=== PATIENT | female | born 1950 | race Caucasian/White ===

== ENCOUNTER 2016-06-06 08:51 | Day surgery (SDC) | payer OTHER ==
[2016-06-06 09:46] VITALS: BMI 28.3
[2016-06-06 10:45] VITALS: TEMP 97.5
[2016-06-06 11:12] VITALS: PULSE 62
[2016-06-06 11:47] VITALS: BP 121/65
== END 2016-06-06 11:35 | disposition home or self-care (01) ==
LOC: JASU-ENDO 08:51
PROVIDERS: ATTEND Internal Medicine Gastroenterology
PROC: 0DJD8ZZ Inspection of Lower Intestinal Tract, Via Natural or Artificial Opening Endoscopic (ICD-10-PCS; principal; 2016-06-06 10:00)
DX: K64.1 Second degree hemorrhoids (principal); K64.4 Residual hemorrhoidal skin tags

== ENCOUNTER 2018-02-01 08:26 | Day surgery (SDC) | payer OTHER ==
[2018-01-31 18:04] VITALS: BMI 26.5
[2018-02-01 08:52] LABS: BASO % 0.6 % (0-2.0); EOS % 2.5 % (0-4.5); HEMATOCRIT 40.9 % (32.4-45.2); HEMOGLOBIN 13.7 GM/dL (10.7-15.3); LYMPH % 29.6 % (8-40); MCH 33.2 pg (25.7-33.7); MCHC 33.4 g/dl (32.0-36.0); MEAN CELL VOLUME 99.5 fl (80-96); MEAN PLT VOLUME 8.8 fl (7.5-11.1); MONO % 8.2 % (3.8-10.2); NEUT % 59.1 % (42.8-82.8); PLATELET COUNT 146 K/MM3 (134-434); RBC 4.11 M/mm3 (3.60-5.2); RDW 12.9 % (11.6-15.6)
[2018-02-01 09:09] LABS: INR 0.97 (0.83-1.09)
[2018-02-01 11:29] VITALS: TEMP 97.9
[2018-02-01 17:32] VITALS: BP 136/71; PULSE 67
--- NOTE | 2018-02-01 18:15 | CON.NEURO ---
Consult - Past Medical History ...: No - Alcohol/Substance Use Hx Alcohol Use: Yes (SOCIAL) - Smoking History Smoking history: Former smoker Have you smoked in the past 12 months: No If you are a former smoker, when did you quit?: 22 YRS. Home Medications - Allergies Allergies/Adverse Reactions: Allergies Allergy/AdvReac Type Severity Reaction Status Date / Time morphine AdvReac Severe Vomiting Verified 01/31/18 17:54 - Home Medications Home Medications: Ambulatory Orders Bisoprolol/Hydrochlorothiazide [Ziac 10-6.25 mg Tablet] 1 each PO DAILY Diclofenac Sodium 75 mg PO PRN PRN 01/31/18 Rosuvastatin Calcium [Crestor] 10 mg PO HS 01/31/18 Physical Exam-Neuro Vital Signs: Vital Signs Temperature 97.9 F 02/01/18 11:15 Pulse Rate 67 02/01/18 17:10 Respiratory Rate 18 02/01/18 17:10 Blood Pressure 136/71 02/01/18 17:10 O2 Sat by Pulse Oximetry (%) 99 02/01/18 11:00 Labs: CBC, BMP 02/01/18 08:39 INR, PTT INR 0.97 (0.83-1.09) 02/01/18 08:39 Assessment/Plan CC: Left leg numbness and weakness following procedure , now resolved HPI 67 year old female history of HTN,HLD,Arthris, colonic polyp, liver cyst and pelvic cyst. She had procedure done suspected to ahve synovial cyst. She was given lidocaine in groin region. Following procedure she could not walk. She denies any similar symptoms on right leg, or back pain , no dysphagia, dysarthria, diplopia or LOC, no seizure. Her symptoms resolved after few hours. Medical History as above Bisoprolol Fumarate/Hctz Crestor 10 mg ROS,FH,SH, She works in [employer] department Denies any toxic habits Neurological Examination Alert oriented x 3 CN all intact , eomi, pupils reactive and no facial asymmetry moving all extremity she is able to walk on toes, partially on heel squatting she has pain as she just had procedure reflex are symmetrical and sensation is normal Assessment- Most likley she has Femoral nerve blockage due to lidocaine injection and it resolved as lidocaine wear off. Clinically no evidence of TIA or stroke, symptoms completely resolved Plan- I gave her my card, and follow up if any active issue - She was reassured, no further test needed, Thanking you so much Tylor Costello MD
--- NOTE | 2018-02-02 12:18 | PATH ---
Cytology Non-Gynecological Report Patient Name: JASKARAN RUVALCABA [facility]. Rec. #: [id number] /Age/Gender: 1950 (Age: 67) / F Account: [id number] Location: RADIOLOGY INTER Taken: 02/01/2018 Received: 02/01/2018 Reported: 02/02/2018 Physicians: Kacy Chowdhury M.D. Specimen(s) Received PELVIC CYST FLUID Clinical History Pelvic cyst Final Diagnosis PELVIC CYST FLUID FOR CYTOLOGY: SATISFACTORY FOR EVALUATION. NEGATIVE FOR MALIGNANT CELLS. CYSTIC LESION WITH MACROPHAGES. SCATTERED MACROPHAGES IN A BACKGROUND OF PROTEINACEOUS MATERIAL. Electronically Signed Mariana Claros M.D. Gross Description Approximately 50 cc of yellow fluid received fixed in 50% alcohol. Two cytofunnels prepared and Pap stained. One cellblock prepared.
== END 2018-02-01 17:10 | disposition home or self-care (01) ==
LOC: JRADIR 08:26
PROVIDERS: ATTEND Specialist
PROC: 0Y963ZZ Drainage of Left Inguinal Region, Percutaneous Approach (ICD-10-PCS; principal; 2018-02-01)
DX: R19.09 Other intra-abdominal and pelvic swelling, mass and lump (principal)
CPT/HCPCS: 36415; 72192-TC; 76942-TC; 85025; 85610; 87070; 87075; 87102; 87116; 87205; 87206; 87210; 88108; 88305-TC

== ENCOUNTER 2018-04-23 06:15 | Emergency (ER) | payer OTHER ==
[2018-04-23 07:06] VITALS: BMI 27.1
[2018-04-23] MEDS ORDERED: ONDANSETRON 4 MG/2 ML VIAL IVPUSH ONE (07:20)
[2018-04-23] MEDS ORDERED: KETOROLAC TROMETHAMINE 30 MG/1 ML VIAL IVPUSH ONE (07:20)
[2018-04-23] MEDS ORDERED: SODIUM CHLORIDE 0.9% 500 ML INFUS.BAG IV ONE (07:21)
--- NOTE | 2018-04-23 07:23 | PDOC ---
History of Present Illness - General Chief Complaint: Pain, Acute Stated Complaint: R/O KIDNEY STONE Time Seen by Provider: 04/23/18 07:01 History Source: Patient Exam Limitations: No Limitations - History of Present Illness Initial Comments: 68 yo F w a hx of cholecystectomy, partial hysterectomy with intact ovaries, recent rotater cuff surgery on Apr 04, HTN, HLD, Arthris, colonic polyp, liver cyst and pelvic cyst is here with sudden onset of R sided flank pain radiating to the RLQ and R groin since 3:30 AM this morning associated with nausea and vomiting. She denies blood in the vomit but states the vomit had bile in it and was yellow/green in appearance. She had an abdominal CT scan around a year ago which showed she had a kidney stone on the right side but it was incidental and asymptomatic at the time of the cat scan. She also states that she has a strong family hx of kidney stones as her sister gets them all the time. Had a normal BM yesterday evening. She denies any recent fevers, chills, or infections. Denies chest pain, SOB, or difficulty breathing. Denies any dysuria, frequency, urgency. Denies any diarrhea or constipation. Past History - Past Medical History Allergies/Adverse Reactions: Allergies Allergy/AdvReac Type Severity Reaction Status Date / Time morphine AdvReac Severe Vomiting Verified 01/31/18 17:54 Home Medications: Ambulatory Orders Bisoprolol/Hydrochlorothiazide [Ziac 10-6.25 mg Tablet] 1 each PO DAILY Diclofenac Sodium 75 mg PO PRN PRN 01/31/18 Rosuvastatin Calcium [Crestor] 10 mg PO HS 01/31/18 Naproxen Sodium [Aleve] 220 mg PO ONCE 7 Days #30 tablet 04/23/18 Tamsulosin HCl [Flomax] 0.4 mg PO DAILY 7 Days #7 capsule 04/23/18 Anemia: No Asthma: No Cancer: No Cardiac Disorders: No CVA: No COPD: No CHF: No Dementia: No Diabetes: No GI Disorders: Yes (DUODENAL POLYP,ENLARGED PANCREATIC HEAD,LIVER CYST,COLONIC POLYPS) Disorders: Yes (KIDNEY STONE) HTN: Yes Hypercholesterolemia: Yes Liver Disease: Yes (NON ALCOHOLIC FATTY LIVER) Seizures: No Thyroid Disease: No - Surgical History Abdominal Surgery: Yes Appendectomy: No Cardiac Surgery: No Cholecystectomy: Yes Lung Surgery: No Neurologic Surgery: Yes (C3-4 DISC - CERVICAL FUSION, LT CARPEL TUNNEL) Orthopedic Surgery: Yes (CARPAL TUNNEL LEFT) - Suicide/Smoking/Psychosocial Hx Smoking History: Unknown if ever smoked Have you smoked in the past 12 months: No If you are a former smoker, when did you quit?: 22 YRS. Information on smoking cessation initiated: No Hx Alcohol Use: No Drug/Substance Use Hx: No Substance Use Type: None Hx Substance Use Treatment: No Review of Systems - Review of Systems Able to Perform ROS?: Yes Comments:: CONSTITUTIONAL: Absent: fever, no chills, no fatigue EYES: Absent: visual changes ENT: Absent: ear pain, no sore throat CARDIOVASCULAR: Absent: chest pain, no palpitations RESPIRATORY: Absent: cough, no SOB GI: Present: Abdominal pain, nausea, vomiting, Absent: no constipation, no diarrhea GENITOURINARY: Absent: dysuria, no frequency MUSKULOSKELETAL: Present: Back pain Absent: no arthralgia, no myalgia SKIN: Absent: rash NEURO: Absent: headache *Physical Exam - Vital Signs Last Vital Signs Temp Pulse Resp BP Pulse Ox 98.9 F 65 17 172/78 H 98 04/23/18 07:00 04/23/18 07:00 04/23/18 07:00 04/23/18 07:00 04/23/18 07:00 - Physical Exam Comments: GENERAL: Patient is writhing in pain in the bed and crying. HEENT: Normocephalic, atraumatic. PERRL, EOM intact. CARDIOVASCULAR: Normal S1, S2. Regular rate and rhythm. PULMONARY: Clear to auscultation bilaterally. ABDOMEN: There is significant Rlq Abdominal and flank pain. Normal BS. Abdomen is soft, no peritoneal signs. EXTREMITIES: Normal ROM in all four extremities. No gross deformities. SKIN: Warm, dry. No rash NEUROLOGICAL: No focal neurological deficits. Moderate Sedation - Procedure Monitoring Vital Signs: Procedure Monitoring Vital Signs Temperature 98.9 F 04/23/18 07:00 Pulse Rate 65 04/23/18 07:00 Respiratory Rate 17 04/23/18 07:00 Blood Pressure 172/78 H 04/23/18 07:00 O2 Sat by Pulse Oximetry (%) 98 04/23/18 07:00 Heart Score/ECG Review - Age Age: >/= 65 - Risk Factors Risk Factors Heart Score: Yes Hx Hypercholesterolemia, Yes Hx Hypertension - ECG Intrepretation Rhythm: Regular Rhythm - [place] Suffolk: Left [place] Deviation - ST and T Early Repolarization: No Non Specific ST-T Wave changes: No - ECG Impressions Normal ECG: Yes Non-specific ST Elevation: No Ischemic Changes: No ED Treatment Course - LABORATORY CBC & Chemistry Diagram: 04/23/18 07:33 04/23/18 07:33 - RADIOLOGY Radiology Studies Ordered: Category Date Time Status ABDOMEN & PELVIS CT W/O CONTR [CT] Stat CT Scan 04/23/18 07:21 Ordered Medical Decision Making - Medical Decision Making 68 yo F w a hx of cholecystectomy, partial hysterectomy with intact ovaries, recent rotater cuff surgery on Apr 04, HTN, HLD, Arthris, colonic polyp, liver cyst and pelvic cyst is here with sudden onset of R sided flank pain radiating to the RLQ and R groin since 3:30 AM this morning associated with nausea and vomiting. DD includes but not limited to: Renal stones, Appy, SBO, AAA, Ovarian pathology. Plan: Cbc, Cmp, ua/uc, EKG, CTAP w/wo contrast, zofran, toradol, IV hydration, re-assess. BUN: 21 Cr: 0.9 3+ blood in urine. Negative LE, negative nitrite. CTAP shows 4 mm right UVJ calculus with moderate hydronephrosis. Patient experienced significant relief with toradol. Plan is to dispo patient on aleve, tylenol, and with a uro FU. Strict return precautions discussed with patient. *DC/Admit/Observation/Transfer Diagnosis at time of Disposition: Kidney stone on right side - Discharge Dispostion Disposition: HOME Condition at time of disposition: Stable Decision to Admit order: No - Prescriptions Prescriptions: Naproxen Sodium [Aleve] 220 mg PO ONCE 7 Days #30 tablet Tamsulosin HCl [Flomax] 0.4 mg PO DAILY 7 Days #7 capsule - Referrals Referrals: Medardo Hood MD [Staff Physician] - - Patient Instructions Printed Discharge Instructions: Kidney Stones (Alternative Therapy), Kidney Stones -- Adult, DI for Kidney Stones Additional Instructions: You came into the ER with right sided flank and abdominal pain. We did a cat scan and saw that you have a 4 millimeter kidney stone which is causing your pain. It is very important to schedule a follow up with a urologist today to monitor your kidney stone. We have attached the number for a urologist for you to call. Please make sure to drink plenty of fluids. Staying hydrated will help pass the stone. Take aleve as needed for pain control. You can also take tylenol is the aleve is not helping enough. We are also sending flomax to your pharmacy to help pass the stone. Please come back to the ER immediately if you develop a fever, extreme pain, can 't pee, have bad body aches, or any other significant new or worsening concerns. Thank you for coming to the [facility] ER. We hope you feel better soon! Print Language: WOLOF - Post Discharge Activity Forms/Work/School Notes: Back to Work
[2018-04-23] MEDS ORDERED: ONDANSETRON 4 MG/2 ML VIAL ONE (07:30)
[2018-04-23] MEDS ORDERED: KETOROLAC TROMETHAMINE 30 MG/1 ML VIAL ONE (07:30)
[2018-04-23 07:45] LABS: BASO % 0.6 % (0-2.0); EOS % 2.5 % (0-4.5); HEMATOCRIT 40.5 % (32.4-45.2); HEMOGLOBIN 14.6 GM/dL (10.7-15.3); LYMPH % 35.6 % (8-40); MCH 35.4 pg (25.7-33.7); MCHC 36.1 g/dl (32.0-36.0); MEAN PLT VOLUME 9.5 fl (7.5-11.1); MONO % 5.4 % (3.8-10.2); NEUT % 55.9 % (42.8-82.8); PLATELET COUNT 184 K/MM3 (134-434); RBC 4.13 M/mm3 (3.60-5.2); WHITE BLOOD COUNT 5.6 K/mm3 (4.0-10.0)
[2018-04-23 08:23] LABS: ALBUMIN 4.5 g/dl (3.4-5.0); ALK PHOS 72 U/L (45-117); ANION GAP 13 MMOL/L (8-16); BILIRUBIN,TOTAL 0.6 mg/dL (0.2-1); BLOOD UREA NITROGEN 21 mg/dL (7-18); CALCIUM 9.1 mg/dL (8.5-10.1); CHLORIDE 107 mmol/L (98-107); CO2 22 mmol/L (21-32); CREATININE 0.9 mg/dL (0.55-1.3); GLUCOSE,RANDOM 147 mg/dL (74-106); POTASSIUM 4.2 mmol/L (3.5-5.1); SGOT/AST 35 U/L (15-37); SGPT/ALT 46 U/L (13-61); SODIUM 142 mmol/L (136-145); TOT PROT 7.8 g/dl (6.4-8.2)
--- NOTE | 2018-04-23 08:47 | PDOC ---
Attending Attestation - Resident Resident Name: Jama Perez - ED Attending Attestation I have performed the following: I have examined & evaluated the patient, The case was reviewed & discussed with the resident, I agree w/resident's findings & plan, Exceptions are as noted - HPI HPI: 04/23/18 08:46 68 years old past medical history significant for cholecystectomy, partial hysterectomy rotator cuff surgery, hypertension, hypercholesterolemia presents to the ED with right-sided abdominal discomfort now maximally located in the right lower quadrant since approximately 3:30 this a.m. associated with nausea vomiting Symptoms are moderate to severe persistent concent no exacerbating or alleviating factors. - Physicial Exam PE: 04/23/18 09:24 Vitals: Triage Vital signs reviewed General Appearance: no acute distress, well nourished well developed, Head: Atraumatic, Eyes: Pupils equal reactive round, extraocular movement intact Chest Wall: Nontender Cardiac: Regular rate and rhythym, no murmurs, no rubs, no gallops, Lungs: Clear to auscultation bilateral, good air movement bilaterally, Abdomen: Soft, non distended, normal bowel sounds, non tender to palpation Extremities: Full range of motion to all extremities, no cyanosis, clubbing, or edema Skin: Warm and dry, no rashes or lesions, no rash, no petechiae Neuro: AOX3; Cranial Nerves 2-12 grossly intact, Strength intact to all extremities, Sensation intact to all extremities,gait normal Psych: normal mood, normal affect - Medical Decision Making 04/23/18 09:26 68 years old with right-sided abdominal discomfort We'll treat with pain medication IV fluids CAT scan with IV contrast observe and reassess 04/23/18 14:20 CAT scan notable for distal ureteral stone. No fever no elevated white blood cell count no evidence of infection on urinalysis. Patient more comfortable after pain medication. We'll follow up with urology this week we'll discharge with increased fluid intake Flomax alternating Aleve and Tylenol for pain Findings, need for follow-up and strict return instructions discussed patient.
[2018-04-23 08:53] LABS: URINE APPEARANCE SLCLOUDY; URINE BILIRUBIN NEGATIVE (<2.0 mg/dL); URINE COLOR YELLOW; URINE GLUCOSE (UA) NEGATIVE (NEGATIVE); URINE KETONE TRACE (NEGATIVE); URINE LEUK ESTERASE NEGATIVE (NEGATIVE); URINE NITRITE NEGATIVE (NEGATIVE); URINE PROTEIN 1+ (NEGATIVE); URINE UROBILINOGEN NEGATIVE mg/dL (0.2-1.0)
[2018-04-23 09:08] LABS: CALCIUM OXALATE CRYSTALS RARE /hpf (NONE SEEN); EPI CELLS RARE /HPF (FEW); URINE MUCUS FEW
--- NOTE | 2018-04-23 11:08 | EKG ---
Test Reason : Blood Pressure : / mmHG Vent. Rate : 062 BPM Atrial Rate : 062 BPM P-R Int : 174 ms QRS Dur : 108 ms QT Int : 464 ms P-R-T Axes : 005 -12 025 degrees QTc Int : 470 ms NORMAL SINUS RHYTHM CANNOT RULE OUT ANTEROSEPTAL INFARCT (CITED ON OR BEFORE 07-OCT-2015) ABNORMAL ECG WHEN COMPARED WITH ECG OF 07-OCT-2015 12:14, NO SIGNIFICANT CHANGE WAS FOUND Confirmed by FELIPA BENTLEY MD ([id number]) on 04/23/2018 11:08:06 AM Referred By: Confirmed By:FELIPA BENTLEY MD
[2018-04-23 11:11] VITALS: BP 111/80; PULSE 78; TEMP 98.3
== END 2018-04-23 11:10 | disposition home or self-care (01) ==
LOC: JER 06:15
PROC: 3E0337Z Introduction of Electrolytic and Water Balance Substance into Peripheral Vein, Percutaneous Approach (ICD-10-PCS; principal; 2018-04-23)
PROC: 3E0333Z Introduction of Anti-inflammatory into Peripheral Vein, Percutaneous Approach (ICD-10-PCS; 2018-04-23)
PROC: 3E033GC Introduction of Other Therapeutic Substance into Peripheral Vein, Percutaneous Approach (ICD-10-PCS; 2018-04-23)
DX: N20.0 Calculus of kidney (principal)
CPT/HCPCS: 36415; 74177-TC; 80053; 81003; 81015; 85025; 87086; 93005; 93010; 99282-25

== ENCOUNTER 2021-05-12 04:22 | Day surgery (SDC) | payer OTHER ==
[2021-05-10 12:29] VITALS: BMI 27.4
[2021-05-12] MEDS ORDERED: ACETAMINOPHEN 1000 MG/100 ML VIAL IVPB ONE ×2 (07:37→09:30)
[2021-05-12] MEDS ORDERED: PROPOFOL 20 ML ONE ×3 (07:37→07:39)
[2021-05-12] MEDS ORDERED: SUCCINYLCHOLINE CHLORIDE 200 MG/10 ML SYRINGE ONE (07:38)
[2021-05-12] MEDS ORDERED: IBUPROFEN 800 MG/8 ML IJ IVPB SCH (07:45)
[2021-05-12] MEDS ORDERED: DEXTROSE 5%-0.45% SALINE 1,000 ML IV SCH (07:45)
[2021-05-12] MEDS ORDERED: ceFAZolin SODIUM 1 GM VIAL IVPB ONE (07:50)
[2021-05-12] MEDS ORDERED: IOHEXOL 300 MG/ML INFUS..BTL IJ ONE (08:29)
[2021-05-12] MEDS ORDERED: LACTATED RINGERS SOLUTION 1,000 ML IV SCH (08:45)
[2021-05-12] MEDS ORDERED: PROMETHAZINE HCL 25 MG/1 ML VIAL IVPUSH PRN (08:45)
[2021-05-12] MEDS ORDERED: ACETAMINOPHEN INJECTION 100 ML IVPB ONE (09:27)
[2021-05-12] MEDS: IBUPROFEN 800 MG/8 ML IJ IVPB ONE ×2 (10:00→10:10)
[2021-05-12 12:11] VITALS: BP 128/60; PULSE 56; TEMP 97.3
== END 2021-05-12 12:13 | disposition home or self-care (01) ==
LOC: JASU-SURG 04:22
PROVIDERS: ATTEND Urology
PROC: 0T768DZ Dilation of Right Ureter with Intraluminal Device, Via Natural or Artificial Opening Endoscopic (ICD-10-PCS; principal; 2021-05-12 07:30)
PROC: 0T9680Z Drainage of Right Ureter with Drainage Device, Via Natural or Artificial Opening Endoscopic (ICD-10-PCS; 2021-05-12 07:30)
DX: N23 Unspecified renal colic (principal)
CPT/HCPCS: 76000-TC-FY; 94760; J0131

== ENCOUNTER 2021-05-14 10:06 | Observation (INO) | payer OTHER ==
[2021-05-14] MEDS ORDERED: SODIUM CHLORIDE 0.9% 500 ML INFUS.BAG IV ONE (11:02)
[2021-05-14] MEDS ORDERED: KETOROLAC TROMETHAMINE 30 MG/1 ML VIAL IVPUSH ONE (11:02)
[2021-05-14] MEDS ORDERED: ACETAMINOPHEN 1000 MG/100 ML VIAL IVPB ONE (11:02)
[2021-05-14] MEDS ORDERED: TAMSULOSIN HCL 0.4 MG CAP PO ONE ×2 (11:15→11:19)
[2021-05-14] MEDS ORDERED: ONDANSETRON 4 MG TABLET PO ONE (11:15)
[2021-05-14] MEDS ORDERED: KETOROLAC TROMETHAMINE 30 MG/1 ML VIAL ONE (11:16)
[2021-05-14] MEDS ORDERED: ACETAMINOPHEN INJECTION 100 ML IVPB ONE ×2 (11:16→20:29)
[2021-05-14] MEDS ORDERED: ONDANSETRON 4 MG/2 ML VIAL IVPUSH ONE (11:17)
[2021-05-14 11:19] LABS: BASO % 0.1 % (0-2.0); EOS % 0.5 % (0-4.5); HEMATOCRIT 40.8 % (32.4-45.2); LYMPH % 22.1 % (8-40); MCH 34.7 pg (25.7-33.7); MCHC 34.2 g/dl (32.0-36.0); MEAN CELL VOLUME 101.6 fl (80-96); MEAN PLT VOLUME 8.4 fl (7.5-11.1); MONO % 6.8 % (3.8-10.2); NEUT % 70.5 % (42.8-82.8); PLATELET COUNT 144 10^3/uL (134-434); RBC 4.02 M/mm3 (3.60-5.2); RDW 13.3 % (11.6-15.6); WHITE BLOOD COUNT 6.5 K/mm3 (4.0-10.0)
[2021-05-14] MEDS ORDERED: ONDANSETRON *ODT* 4 MG TABLET ONE (11:20)
[2021-05-14] MEDS ORDERED: ONDANSETRON 4 MG/2 ML VIAL ONE (11:25)
[2021-05-14] MEDS ORDERED: TAMSULOSIN HCL 0.4 MG CAP ONE (11:25)
[2021-05-14 11:38] LABS: CHLORIDE 108 mmol/L (98-107); SODIUM 143 mmol/L (136-145)
[2021-05-14 11:40] LABS: ALBUMIN 3.9 g/dl (3.4-5.0); ANION GAP 6 MMOL/L (8-16); BLOOD UREA NITROGEN 12.8 mg/dL (7-18); CO2 28 mmol/L (21-32); LIPASE 97 U/L (73-393)
[2021-05-14 11:41] LABS: GLUCOSE,RANDOM 119 mg/dL (74-106)
[2021-05-14 11:43] LABS: CREATININE 0.9 mg/dL (0.55-1.3); SGOT/AST 21 U/L (15-37); SGPT/ALT 27 U/L (13-61)
[2021-05-14 11:45] LABS: BILIRUBIN,TOTAL 0.6 mg/dL (0.2-1); TOT PROT 7.4 g/dl (6.4-8.2)
[2021-05-14 11:46] LABS: ALK PHOS 52 U/L (45-117)
[2021-05-14 13:15] LABS: EPI CELLS FEW /uL (0-25.1); URINE APPEARANCE TURBID; URINE BACTERIA FEW /uL (0-1359); URINE COLOR BROWN; URINE RBC >100 /uL (0-23.9); YEAST FEW (NEGATIVE)
[2021-05-14] MEDS ORDERED: PIPERACILLIN/TAZOB 4.5 GM 4.5 GM in DEXTROSE 5%-WATER - 100 ML IVPB ONE (13:42)
[2021-05-14] MEDS ORDERED: PIPERACILLIN/TAZOB 4.5 GM 4.5 GM/100 ML BAG IVPB ONE (13:52)
[2021-05-14] MEDS ORDERED: ONDANSETRON 4 MG/2 ML VIAL IVPUSH PRN (14:26)
[2021-05-14] MEDS: ACETAMINOPHEN 1000 MG/100 ML VIAL IVPB PRN (20:37)
[2021-05-14] MEDS: HEPARIN NA (PORCINE) 5,000 UNITS/ML 1ML VIAL SQ SCH (22:53)
[2021-05-14 23:58] VITALS: BMI 28.3
[2021-05-15] MEDS: ACETAMINOPHEN 1000 MG/100 ML VIAL IVPB PRN (06:10)
[2021-05-15] MEDS ORDERED: KETOROLAC TROMETHAMINE 15 MG/ML VIAL IVPB ONE (07:00)
[2021-05-15] MEDS ORDERED: PT OWN MED DRAWER 7, Y5N ONE (09:19)
[2021-05-15 09:25] LABS: BASO % 0.3 % (0-2.0); EOS % 0.7 % (0-4.5); HEMATOCRIT 38.2 % (32.4-45.2); HEMOGLOBIN 13.2 GM/dL (10.7-15.3); LYMPH % 23.3 % (8-40); MCH 34.7 pg (25.7-33.7); MCHC 34.4 g/dl (32.0-36.0); MEAN CELL VOLUME 100.7 fl (80-96); MEAN PLT VOLUME 8.3 fl (7.5-11.1); MONO % 7.5 % (3.8-10.2); NEUT % 68.2 % (42.8-82.8); PLATELET COUNT 145 10^3/uL (134-434); RDW 12.9 % (11.6-15.6); WHITE BLOOD COUNT 5.2 K/mm3 (4.0-10.0)
[2021-05-15 09:55] LABS: ALBUMIN 3.6 g/dl (3.4-5.0); BLOOD UREA NITROGEN 10.7 mg/dL (7-18)
[2021-05-15 09:57] LABS: BILIRUBIN,TOTAL 0.8 mg/dL (0.2-1)
[2021-05-15 09:58] LABS: CREATININE 0.8 mg/dL (0.55-1.3)
[2021-05-15] MEDS ORDERED: oxyCODONE HCL 5 MG TABLET PO PRN (10:01)
[2021-05-15] MEDS: LOSARTAN POTASSIUM 50 MG TABLET PO SCH (10:31)
[2021-05-15] MEDS: ATENOLOL 25 MG TABLET (FP) PO SCH (10:31)
[2021-05-15] MEDS: HEPARIN NA (PORCINE) 5,000 UNITS/ML 1ML VIAL SQ SCH (10:33)
[2021-05-15] MEDS: D5-1/2NS+20 MEQ KCL - 20 MEQ/1,000 ML INFUS.BAG IV SCH ×3 (11:41→21:03)
[2021-05-15] MEDS: TAMSULOSIN HCL 0.4 MG CAP PO SCH (13:14)
[2021-05-15] MEDS ORDERED: ROSUVASTATIN CA 10 MG TABLET (FP) PO SCH (22:00)
[2021-05-16] MEDS: D5-1/2NS+20 MEQ KCL - 20 MEQ/1,000 ML INFUS.BAG IV SCH (06:02)
[2021-05-16] MEDS: TAMSULOSIN HCL 0.4 MG CAP PO SCH (08:53)
[2021-05-16] MEDS: LOSARTAN POTASSIUM 50 MG TABLET PO SCH (09:30)
[2021-05-16] MEDS: ATENOLOL 25 MG TABLET (FP) PO SCH (09:31)
[2021-05-16] MEDS ORDERED: HYDROCHLOROTHIAZIDE 12.5 MG CAPSULE (FP) PO SCH (10:00)
[2021-05-16] MEDS ORDERED: ATENOLOL 50 MG TABLET (FP) PO SCH (10:00)
[2021-05-16] MEDS ORDERED: PT OWN MED DRAWER 7, Y5N ONE (10:34)
[2021-05-16 10:51] LABS: BASO % 0.5 % (0-2.0); EOS % 1.2 % (0-4.5); HEMOGLOBIN 12.6 GM/dL (10.7-15.3); LYMPH % 26.4 % (8-40); MCH 34.5 pg (25.7-33.7); MCHC 34.1 g/dl (32.0-36.0); MEAN CELL VOLUME 101.1 fl (80-96); MEAN PLT VOLUME 8.7 fl (7.5-11.1); MONO % 6.2 % (3.8-10.2); NEUT % 65.7 % (42.8-82.8); PLATELET COUNT 144 10^3/uL (134-434); RBC 3.66 M/mm3 (3.60-5.2); RDW 13.2 % (11.6-15.6); WHITE BLOOD COUNT 4.6 K/mm3 (4.0-10.0)
[2021-05-16 11:17] LABS: ALBUMIN 3.4 g/dl (3.4-5.0); BLOOD UREA NITROGEN 6.6 mg/dL (7-18); CALCIUM 8.6 mg/dL (8.5-10.1)
[2021-05-16 11:21] LABS: CREATININE 0.7 mg/dL (0.55-1.3)
[2021-05-16 11:22] LABS: BILIRUBIN,TOTAL 0.4 mg/dL (0.2-1); TOT PROT 6.9 g/dl (6.4-8.2)
[2021-05-16 11:49] VITALS: BP 115/57; PULSE 74; TEMP 97.8
== END 2021-05-16 12:45 | disposition home or self-care (01) ==
LOC: JER 10:06 → INTOOBSV 14:13 → JERBED 14:13 → J5S 22:04
PROVIDERS: ADMIT Internal Medicine; ATTEND Internal Medicine
PROC: 3E03329 Introduction of Other Anti-infective into Peripheral Vein, Percutaneous Approach (ICD-10-PCS; principal; 2021-05-14)
PROC: 3E0337Z Introduction of Electrolytic and Water Balance Substance into Peripheral Vein, Percutaneous Approach (ICD-10-PCS; 2021-05-14)
PROC: 3E033NZ Introduction of Analgesics, Hypnotics, Sedatives into Peripheral Vein, Percutaneous Approach (ICD-10-PCS; 2021-05-14)
DX: N12 Tubulo-interstitial nephritis, not specified as acute or chronic (principal); R10.31 Right lower quadrant pain; N20.0 Calculus of kidney; I10 Essential (primary) hypertension; E78.5 Hyperlipidemia, unspecified; M19.90 Unspecified osteoarthritis, unspecified site; K76.0 Fatty (change of) liver, not elsewhere classified; R19.07 Generalized intra-abdominal and pelvic swelling, mass and lump; Z96.0 Presence of urogenital implants; Z88.8 Allergy status to other drugs, medicaments and biological substances; Z90.710 Acquired absence of both cervix and uterus
CPT/HCPCS: 36415; 71045-TC-FY; 74176-TC; 80053; 81003; 82550; 83690; 84484; 85025; 86850; 86900; 86901; 87086; 93005; 93010; 96365; 96367; 96375; 96376; 99285-25; C9803; G0378; J0131; J1644; U0003; U0005

== ENCOUNTER 2021-06-03 04:21 | Day surgery (SDC) | payer OTHER ==
[2021-06-02 09:48] VITALS: BMI 27.4
[2021-06-03] MEDS ORDERED: SUCCINYLCHOLINE CHLORIDE 200 MG/10 ML SYRINGE ONE (07:23)
[2021-06-03] MEDS ORDERED: MIDAZOLAM HCL 2 MG/2 ML SINGLE DOSE VIAL ONE (07:23)
[2021-06-03] MEDS ORDERED: PROPOFOL 20 ML ONE ×2 (07:23)
[2021-06-03] MEDS ORDERED: ACETAMINOPHEN 1000 MG/100 ML BAG IVPB ONE (07:47)
[2021-06-03] MEDS ORDERED: DEXTROSE 5%-0.45% SALINE 1,000 ML IV SCH (08:00)
[2021-06-03] MEDS ORDERED: ceFAZolin SODIUM 1 GM VIAL IVPB ONE (08:00)
[2021-06-03] MEDS ORDERED: ONDANSETRON 4 MG/2 ML VIAL IVPUSH PRN (08:06)
[2021-06-03] MEDS ORDERED: oxyCODONE HCL 5 MG TABLET PO PRN (08:06)
[2021-06-03] MEDS ORDERED: LACTATED RINGERS SOLUTION 1,000 ML IV SCH (08:15)
[2021-06-03] MEDS ORDERED: ACETAMINOPHEN INJECTION 100 ML IVPB ONE (09:13)
[2021-06-03 10:55] VITALS: TEMP 97.2
[2021-06-03] MEDS ORDERED: ONDANSETRON 4 MG/2 ML VIAL ONE (11:35)
[2021-06-03 11:51] VITALS: BP 121/58; PULSE 57
== END 2021-06-03 12:15 | disposition home or self-care (01) ==
LOC: JASU-SURG 04:21
PROVIDERS: ATTEND Urology
PROC: 0TC38ZZ Extirpation of Matter from Right Kidney Pelvis, Via Natural or Artificial Opening Endoscopic (ICD-10-PCS; principal; 2021-06-03 07:30)
DX: N20.0 Calculus of kidney (principal)
CPT/HCPCS: 76000-TC-FY; 88300-TC; 94760; J0131

== ENCOUNTER → 2023-04-27 | Day surgery (SDC) | payer OTHER | END | disposition home or self-care (01) | LOC: FMAMMOTONE 10:21 | PROVIDERS: ATTEND Internal Medicine | PROC: 0HBT3ZX Excision of Right Breast, Percutaneous Approach, Diagnostic (ICD-10-PCS; principal; 2023-04-27) | DX: R92.1 Mammographic calcification found on diagnostic imaging of breast (principal) | CPT/HCPCS: 19081; 76098-TC-FY; 87899; 88305-TC; A4648 ==

== ENCOUNTER 2024-07-04 04:11 | Day surgery (SDC) | payer OTHER ==
[2024-07-03 17:20] VITALS: BMI 26.4
[2024-07-04] MEDS ORDERED: BUPIVACAINE HCL/PF 0.75% 10 ML VIAL ONE (07:28)
[2024-07-04] MEDS ORDERED: LIDOCAINE HCL/PF 1% SDV 5ML VIAL ONE (07:28)
[2024-07-04] MEDS ORDERED: ACETAMINOPHEN 500 MG TABLET (FP) PO PRN (09:03)
[2024-07-04 09:50] VITALS: RESP 18; TEMP 97.8
[2024-07-04] MEDS: LIDOCAINE HCL 1% PRESERVATIVE FREE - 30ML VIAL IJ ONE (11:04)
[2024-07-04] MEDS: BUPIVACAINE HCL/PF 0.75% 10 ML VIAL NR ONE ×3 (11:07)
[2024-07-04 13:04] VITALS: BP 129/70; PULSE 76
== END 2024-07-04 11:40 | disposition home or self-care (01) ==
LOC: JASU-SURG 04:11
PROVIDERS: ATTEND Pain Medicine Pain Medicine
PROC: 3E0T33Z Introduction of Anti-inflammatory into Peripheral Nerves and Plexi, Percutaneous Approach (ICD-10-PCS; 2024-07-04)
PROC: 3E0T3BZ Introduction of Anesthetic Agent into Peripheral Nerves and Plexi, Percutaneous Approach (ICD-10-PCS; principal; 2024-07-04 11:00)
DX: M47.816 Spondylosis without myelopathy or radiculopathy, lumbar region (principal)
CPT/HCPCS: 76000-TC-FY

== ENCOUNTER 2024-09-27 13:53 | Emergency (ER) | payer OTHER ==
[2024-09-27 14:10] VITALS: BP 123/69; PULSE 69; RESP 16; TEMP 97.9; BMI 26.7
== END 2024-09-27 15:08 | disposition home or self-care (01) ==
LOC: JER 13:53
DX: S29.012A Strain of muscle and tendon of back wall of thorax, initial encounter (principal); V89.2XXA Person injured in unspecified motor-vehicle accident, traffic, initial encounter
CPT/HCPCS: 99283-25